=== PATIENT | female | born 1965 | race Caucasian/White ===

== ENCOUNTER 2017-12-28 01:40 | Emergency (ER) | payer MEDICARE ==
--- NOTE | 2017-12-28 02:01 | ERPHSYRPT ---
- History of Present Illness Time Seen by Provider: 12/28/17 01:57 Source: patient, family Exam Limitations: no limitations Patient Subjective Stated Complaint: pt states she has been on suboxone treatment for approx 3 months and has not had any for 8 days and is going through withdrawals from pain medication and suboxone at this time. Triage Nursing Assessment: pt a&o x3; skin p, w, & d; no acute distres at this time; ambulated to room per self. Physician History: 52 y/o white female on suboxone for last 3 months. she has been off for 8 days. she is feeling as though she is withdrawing. pt is aware we do not carry suboxone. pt states she moved here from [place], [place] one week. Timing/Duration: day(s) (8) Severity of Symptoms-Max: moderate Severity of Symptoms-Current: mild Context related to: other (withdrawing from suboxone) Associated Symptoms: anxiety, insomnia Previous symptoms: same symptoms as today Allergies/Adverse Reactions: amoxicillin Allergy (Severe, Verified 12/28/17 01:58) Anaphylactic Reaction cephalexin [From Keflex] Allergy (Severe, Verified 12/28/17 01:58) Anaphylactic Reaction clavulanic acid [From Augmentin] Allergy (Severe, Verified 12/28/17 01:58) Anaphylactic Reaction Penicillins Allergy (Severe, Verified 12/28/17 01:58) Anaphylactic Reaction Home Medications: Atorvastatin Calcium [Lipitor] 20 mg PO DAILY 12/28/17 [History] Clonazepam 0.5 mg [Klonopin 0.5 MG] 0.5 mg PO TID 12/28/17 [History] Gabapentin 800 mg PO QID 12/28/17 [History] Lisinopril 5 mg [Zestril 5 MG] 5 mg PO DAILY 12/28/17 [History] Metformin HCl 500 mg [Glucophage 500 MG] 1,000 mg PO BID 12/28/17 [History ] Hx Tetanus, Diphtheria Vaccination/Date Given: Yes Hx Influenza Vaccination/Date Given: No Hx Pneumococcal Vaccination/Date Given: No Immunizations Up to Date: No - Past Medical History Pertinent Past Medical History: Yes Neurological History: No Pertinent History ENT History: No Pertinent History Cardiac History: High Cholesterol, Hypertension Respiratory History: No Pertinent History Endocrine Medical History: Diabetes Type II Musculoskeletal History: No Pertinent History GI Medical History: No Pertinent History History: No Pertinent History Psycho-Social History: No Pertinent History Female Reproductive Disorders: No Pertinent History Other Medical History: lupus, ptsd - Past Surgical History Past Surgical History: Yes Musculoskeletal: Orthopedic Surgery - Social History Smoking Status: Current every day smoker How long have you smoked: 25 Exposure to second hand smoke: No Drug Use: marijuana Patient Lives Alone: Yes - Female History Hx Last Menstrual Period: post - Review of Systems Eyes: No Symptoms, Eye Pain Ears, Nose, & Throat: No Symptoms, No Ear Pain Respiratory: No Symptoms, No Cough, No Dyspnea, No Stridor, No Wheezing Cardiac: No Symptoms, No Chest Pain, No Palpitations, No Syncope Abdominal/Gastrointestinal: Nausea, No Abdominal Pain, No Vomiting, No Diarrhea Genitourinary Symptoms: No Symptoms, No Dysuria, No Frequency, No Hematuria Musculoskeletal: No Symptoms, Back Pain, No Neck Pain Skin: Other (upper ext skin lesions. started on anitbx 12/27/17) Neurological: Dizziness Psychological: Drug Abuse, Anxiety, No Suicidal Ideations, No Homicidal Ideations, No Hallucinations Endocrine: No Symptoms, No Polyuria, No Polydipsia Hematologic/Lymphatic: No Symptoms All Other Systems: Reviewed and Negative - Nursing Vital Signs Nursing Vital Signs: Initial Vital Signs Temperature 97.8 F 12/28/17 01:48 Pulse Rate 88 12/28/17 01:48 Respiratory Rate 18 12/28/17 01:48 Blood Pressure 131/81 12/28/17 01:48 O2 Sat by Pulse Oximetry 99 12/28/17 01:48 Pain Scale Pain Intensity 0 - Physical Exam General Appearance: no apparent distress, alert, anxiety Eyes, Ears, Nose, Throat Exam: normal ENT inspection, moist mucous membranes Neck Exam: normal inspection, non-tender, supple, full range of motion Respiratory Exam: normal breath sounds, lungs clear, airway intact, No chest tenderness, No respiratory distress, No rhonchi, No wheezing, No stridor Cardiovascular Exam: regular rate/rhythm, No normal heart sounds, No normal peripheral pulses Gastrointestinal/Abdominal Exam: soft, normal bowel sounds, No tenderness, No guarding, No rebound Extremities Exam: other (skin of bilat upper ext with several excoriation sites ) Current Suicidality: denies suicide plan Neurological Exam: alert, normal mood/affect, information assurance specialist II-XII nml as tested, oriented x 3, anxious Appearance: appropriate appearance, appropriate insight, neat, no memory impairment Behavior/Eye Contact/Speech: alert & cooperative, avoids eye contact Thoughts/Hallucinations: normal thought pattern, no apparent hallucination Skin Exam: normal color, warm, dry SpO2 Interpretation: normal SpO2: 99 Oxygen Delivery: Room Air - Course Nursing assessment & vital signs reviewed: Yes Ordered Tests: Active Orders 24 hr Category Date Time Status IV Insertion STAT Care 12/28/17 02:13 Active ACETAMINOPHEN Stat Lab 12/28/17 02:15 Completed CBC W DIFF Stat Lab 12/28/17 02:15 Completed CMP Stat Lab 12/28/17 02:15 Completed ETHYL ALCOHOL Stat Lab 12/28/17 02:15 Completed SALICYLATE Stat Lab 12/28/17 02:15 Completed UA W/ MICROSCOPIC Stat Lab 12/28/17 02:15 Completed Urine Triage Profile Stat Lab 12/28/17 02:15 Completed Medication Summary Discontinued Medications Generic Name Dose Route Start Last Admin Trade Name Cristal PRN Reason Stop Dose Admin Sodium Chloride 1,000 mls @ 999 mls/hr 12/28/17 02:13 12/28/17 02:29 Sodium Chloride 0.9% 1000 Ml IV 12/28/17 03:13 999 mls/hr .Q1H1M STA Administration Sodium Chloride Confirm 12/28/17 02:27 Sodium Chloride 0.9% 1000 Ml Administered 12/28/17 02:28 Dose 1,000 mls @ ud .ROUTE .STK-MED ONE Lorazepam 1 mg 12/28/17 02:15 12/28/17 02:28 Ativan 2 Mg/1 Ml Vial IV 12/28/17 02:16 1 mg STAT ONE Administration Lorazepam Confirm 12/28/17 02:27 Ativan 2 Mg/1 Ml Vial Administered 12/28/17 02:28 Dose 2 mg .ROUTE .STK-MED ONE Ondansetron HCl 4 mg 12/28/17 02:13 12/28/17 02:28 Zofran 4 Mg/2 Ml Vial IV 12/28/17 02:14 4 mg STAT ONE Administration Ondansetron HCl Confirm 12/28/17 02:27 Zofran 4 Mg/2 Ml Vial Administered 12/28/17 02:28 Dose 4 mg .ROUTE .STK-MED ONE Lab/Rad Data: Laboratory Result Diagrams 12/28/17 02:15 12/28/17 02:15 Laboratory Results 12/28/17 12/28/17 12/28/17 Range/Units 02:15 02:15 02:15 WBC (4.0-10.5) K/mm3 RBC (4.1-5.4) M/mm3 Hgb (12.0-16.0) gm/dl Hct (35-47) % MCV (78-100) fl MCH (26-32) pg MCHC (32-36) g/dl RDW (11.5-14.0) % Plt Count (150-450) K/mm3 MPV (6-9.5) fl Gran % (36.0-66.0) % Eos # (Auto) (0-0.5) Absolute Lymphs (auto) (1.0-4.6) Absolute Monos (auto) (0.0-1.3) Lymphocytes % (24.0-44.0) % Monocytes % (0.0-12.0) % Eosinophils % (0.00-5.0) % Basophils % (0.0-0.4) % Absolute Granulocytes (1.4-6.9) Basophils # (0-0.4) Sodium 145 (137-145) mmol/L Potassium 3.5 (3.5-5.1) mmol/L Chloride 109 H (98-107) mmol/L Carbon Dioxide 25 (22-30) mmol/L Anion Gap 14.5 (5-15) MEQ/L BUN 8 (7-17) mg/dL Creatinine 0.52 (0.52-1.04) mg/dL Estimated GFR > 60.0 ML/MIN Glucose 129 H (74-106) mg/dL Calcium 10.2 (8.4-10.2) mg/dL Total Bilirubin 0.30 (0.2-1.3) mg/dL AST 18 (14-36) U/L ALT 24 (0-35) U/L Alkaline Phosphatase 164 H (38-126) U/L Serum Total Protein 7.7 (6.3-8.2) g/dL Albumin 4.6 (3.5-5.0) g/dL Ur Collection Type VOID Urine Color LT.YELLOW (YELLOW) Urine Appearance CLEAR (CLEAR) Urine pH 6.5 (5-6) Ur Specific [place] 1.010 (1.005-1.025) Urine Protein NEGATIVE (Negative) Urine Ketones NEGATIVE (NEGATIVE) Urine Blood 250 (0-5) Bernard/ul Urine Nitrite NEGATIVE (NEGATIVE) Urine Bilirubin NEGATIVE (NEGATIVE) Urine Urobilinogen NORMAL (0-1) mg/dL Ur Leukocyte Esterase NEGATIVE (NEGATIVE) Urine Microscopic RBC 2-5 (0-2) /HPF Ur Epithelial Cells RARE (FEW) /HPF Urine Culture Reflexed NO (NO) Urine Glucose NEGATIVE (NEGATIVE) mg/dL Salicylates < 1.0 L (2-20) mg/dL Urine Opiates Level NEGATIVE (NEGATIVE) Ur Methadone NEGATIVE (NEGATIVE) Acetaminophen < 10 L (10-30) ug/ml Urine Barbiturates NEGATIVE (NEGATIVE) Ur Phencyclidine (PCP) NEGATIVE (NEGATIVE) Urine Amphetamine NEGATIVE (NEGATIVE) U Benzodiazepine Level NEGATIVE (NEGATIVE) Urine Cocaine NEGATIVE (NEGATIVE) Urine Marijuana (THC) NEGATIVE (NEGATIVE) Ethyl Alcohol < 10 (0-10) mg/dL Specimen Received 12/28 0230 12/28/17 Range/Units 02:15 WBC 13.0 H (4.0-10.5) K/mm3 RBC 5.23 (4.1-5.4) M/mm3 Hgb 15.2 (12.0-16.0) gm/dl Hct 44.8 (35-47) % MCV 85.7 (78-100) fl MCH 29.1 (26-32) pg MCHC 33.9 (32-36) g/dl RDW 13.3 (11.5-14.0) % Plt Count 408 (150-450) K/mm3 MPV 9.6 H (6-9.5) fl Gran % 71.2 H (36.0-66.0) % Eos # (Auto) 0.17 (0-0.5) Absolute Lymphs (auto) 2.57 (1.0-4.6) Absolute Monos (auto) 0.97 (0.0-1.3) Lymphocytes % 19.8 L (24.0-44.0) % Monocytes % 7.5 (0.0-12.0) % Eosinophils % 1.3 (0.00-5.0) % Basophils % 0.2 (0.0-0.4) % Absolute Granulocytes 9.22 H (1.4-6.9) Basophils # 0.03 (0-0.4) Sodium (137-145) mmol/L Potassium (3.5-5.1) mmol/L Chloride (98-107) mmol/L Carbon Dioxide (22-30) mmol/L Anion Gap (5-15) MEQ/L BUN (7-17) mg/dL Creatinine (0.52-1.04) mg/dL Estimated GFR ML/MIN Glucose (74-106) mg/dL Calcium (8.4-10.2) mg/dL Total Bilirubin (0.2-1.3) mg/dL AST (14-36) U/L ALT (0-35) U/L Alkaline Phosphatase (38-126) U/L Serum Total Protein (6.3-8.2) g/dL Albumin (3.5-5.0) g/dL Ur Collection Type Urine Color (YELLOW) Urine Appearance (CLEAR) Urine pH (5-6) Ur Specific [place] (1.005-1.025) Urine Protein (Negative) Urine Ketones (NEGATIVE) Urine Blood (0-5) Bernard/ul Urine Nitrite (NEGATIVE) Urine Bilirubin (NEGATIVE) Urine Urobilinogen (0-1) mg/dL Ur Leukocyte Esterase (NEGATIVE) Urine Microscopic RBC (0-2) /HPF Ur Epithelial Cells (FEW) /HPF Urine Culture Reflexed (NO) Urine Glucose (NEGATIVE) mg/dL Salicylates (2-20) mg/dL Urine Opiates Level (NEGATIVE) Ur Methadone (NEGATIVE) Acetaminophen (10-30) ug/ml Urine Barbiturates (NEGATIVE) Ur Phencyclidine (PCP) (NEGATIVE) Urine Amphetamine (NEGATIVE) U Benzodiazepine Level (NEGATIVE) Urine Cocaine (NEGATIVE) Urine Marijuana (THC) (NEGATIVE) Ethyl Alcohol (0-10) mg/dL Specimen Received labs reviewed - Progress Progress: improved Progress Note: 12/28/17 04:24 pt asleep and comfortable Counseled pt/family regarding: lab results, diagnosis, need for follow-up - Departure Time of Disposition: 04:24 Departure Disposition: Home Clinical Impression: Generalized body aches Condition: Stable Critical Care Time: No Referrals: STACY MUNSON [Primary Care Provider] - Additional Instructions: drink plenty of fluids. continue your medications as prescribed. follow up with primary doctor for further management
[2017-12-28] MEDS ORDERED: Zofran 4 MG/2 ML VIAL IV ONE (02:13)
[2017-12-28] MEDS ORDERED: Sodium Chloride 0.9% 1000 ML 1,000 ML IV STA (02:13)
[2017-12-28] MEDS ORDERED: Ativan 2 MG/1 ML VIAL IV ONE (02:15)
[2017-12-28] MEDS ORDERED: Sodium Chloride 0.9% 1000 ML 1,000 ML ONE (02:27)
[2017-12-28] MEDS ORDERED: Zofran 4 MG/2 ML VIAL ONE (02:27)
[2017-12-28] MEDS ORDERED: Ativan 2 MG/1 ML VIAL ONE (02:27)
[2017-12-28 02:41] LABS: Appearance CLEAR (CLEAR); Bilirubin NEGATIVE (NEGATIVE); Blood 250 Ery/ul (0-5); Glucose NEGATIVE (NEGATIVE); Ketones NEGATIVE (NEGATIVE); Leukocyte Esterase NEGATIVE (NEGATIVE); Nitrite NEGATIVE (NEGATIVE); Ph 6.5 (5-6); Protein,Urine Dip NEGATIVE (Negative); Urobilinogen NORMAL mg/dL (0-1)
[2017-12-28 02:42] LABS: BASOPHIL % 0.2 % (0.0-0.4); Basophil (Absolute #) 0.03 (0-0.4); Eosinophil % 1.3 % (0.00-5.0); Eosinophil (Absolute #) 0.17 (0-0.5); Granulocyte Absolute (ANC) 9.22 (1.4-6.9); Granulocytes % 71.2 % (36.0-66.0); Hematocrit 44.8 % (35-47); Hemoglobin 15.2 gm/dl (12.0-16.0); Lymphocyte (Absolute #) 2.57 (1.0-4.6); Lymphocytes % 19.8 % (24.0-44.0); Mean Cell Volume 85.7 fl (78-100); Mean Corpuscular Hemoglobin 29.1 pg (26-32); Mean Corpuscular Hgb Concent. 33.9 g/dl (32-36); Mean Platelet Volume 9.6 fl (6-9.5); Monocyte (Absolute #) 0.97 (0.0-1.3); Monocytes % 7.5 % (0.0-12.0); Platelet Count 408 K/mm3 (150-450); Red Blood Count 5.23 M/mm3 (4.1-5.4); Red Cell Distribution Width 13.3 % (11.5-14.0)
[2017-12-28 02:44] LABS: Epithelial Cells RARE /HPF (FEW)
[2017-12-28 02:48] LABS: ALBUMIN 4.6 g/dL (3.5-5.0); ALKALINE PHOSPHATASE 164 U/L (38-126); ANION GAP 14.5 MEQ/L (5-15); BLOOD UREA NITROGEN 8 mg/dL (7-17); CHLORIDE 109 mmol/L (98-107); Calcium 10.2 mg/dL (8.4-10.2); Carbon Dioxide 25 mmol/L (22-30); Creatinine 1 0.52 mg/dL (0.52-1.04); Glucose 129 mg/dL (74-106); Potassium 3.5 mmol/L (3.5-5.1); SGOT/AST 18 U/L (14-36); SGPT/ALT 24 U/L (0-35); SODIUM 145 mmol/L (137-145); Total Protein 7.7 g/dL (6.3-8.2)
[2017-12-28 02:49] LABS: ACETAMINOPHEN < 10 ug/ml (10-30); ETHYL ALCOHOL < 10 mg/dL (0-10); SALICYLATE < 1.0 mg/dL (2-20)
[2017-12-28 02:58] LABS: Amphetamine,Urine NEGATIVE (NEGATIVE); Barbiturate,Urine NEGATIVE (NEGATIVE); Benzodiazepine,Urine NEGATIVE (NEGATIVE); Cocaine,Urine NEGATIVE (NEGATIVE); Methadone,Urine NEGATIVE (NEGATIVE); Opiate,Urine NEGATIVE (NEGATIVE); PCP,Urine NEGATIVE (NEGATIVE); THC,Urine NEGATIVE (NEGATIVE)
[2017-12-28 06:30] VITALS: BP 128/74; PULSE 74; O2SAT 96
== END 2017-12-28 06:28 | disposition home or self-care (01) ==
LOC: ED 01:40
DX: R52 Pain, unspecified (principal); Z79.899 Other long term (current) drug therapy; E11.9 Type 2 diabetes mellitus without complications; Z79.84 Long term (current) use of oral hypoglycemic drugs; F41.9 Anxiety disorder, unspecified; G47.00 Insomnia, unspecified
CPT/HCPCS: 36000; 36415; 80053; 80307; 81000; 85025; 96360; 96374; 96375; 99284; G0481; J2060; J2405; G0480